=== PATIENT | female | born 1975 | race Hispanic/Latino ===

== ENCOUNTER 2021-10-12 21:56 | Emergency (ER) | payer SELFPAY ==
[2021-10-12] MEDS ORDERED: Sodium Chloride 0.9% 1,000 ML ONE (22:53)
[2021-10-12] MEDS ORDERED: Ondansetron PF 4 MG/2 ML Vial ONE (22:53)
[2021-10-12] MEDS ORDERED: methylPREDNISolone Sod Succ/PF 125 MG/2 ML VIAL ONE (23:16)
[2021-10-12 23:17] LABS: Anion Gap 14 mmol/L (10-20); BUN (Urea Nitrogen) 14 mg/dL (7.0-18.7); Calc. Creatinine Clearance 0 mL/min (70-130); Calcium 8.9 mg/dL (7.8-10.44); Carbon Dioxide 25 mmol/L (22-29); Chloride 103 mmol/L (98-107); Glucose 102 mg/dL (70-105); Potassium 3.7 mmol/L (3.5-5.1); Sodium 138 mmol/L (136-145)
== END 2021-10-13 00:11 | disposition home or self-care (01) ==
LOC: NAV ERS 21:56
DX: J02.9 Acute pharyngitis, unspecified (principal)
CPT/HCPCS: 80048; 96374; 96375; J2405; J2930; J7050

== ENCOUNTER 2021-11-10 00:48 | Emergency (ER) | payer SELFPAY ==
[2021-11-10] MEDS ORDERED: Cyclobenzaprine 10 MG TAB ONE (01:29)
[2021-11-10] MEDS ORDERED: Ketorolac Tromethamine 30 MG/ML VIAL ONE (01:29)
[2021-11-10] MEDS ORDERED: traMADol HCl 50 MG TAB ONE (01:29)
== END 2021-11-10 02:20 | disposition home or self-care (01) ==
LOC: NAV ERS 00:48
DX: M54.41 Lumbago with sciatica, right side (principal)
CPT/HCPCS: 96372; 99283; J1885

== ENCOUNTER 2021-11-15 08:40 | Emergency (ER) | payer SELFPAY ==
[2021-11-15 09:10] LABS: Bilirubin Moderate (Negative); Blood, Urine Trace (Negative); Clarity Slightly Cloudy (Clear); Glucose, Urine (Dipstick) Negative (Negative); Ketone, Urine > or equal to 80 mg/dL (Negative); Leukocyte Negative (Negative); Nitrite Negative (Negative); Protein, Urine (Dipstick) 100 mg/dL (Neg-Trace); pH, Urine 5.5 (5.0-9.0)
[2021-11-15 09:15] LABS: Bacteria/HPF 1+ HPF (None Seen); RBC/HPF 0-3 HPF (0-3); WBC/HPF 0-3 HPF (0-3)
[2021-11-15] MEDS ORDERED: Ondansetron PF 4 MG/2 ML Vial ONE (09:18)
[2021-11-15] MEDS ORDERED: Sodium Chloride 0.9% 1,000 ML ONE ×2 (09:18→10:13)
[2021-11-15 09:26] LABS: Hemoglobin 10.2 g/dL (12.0-16.0); Mean Corpuscular HGB CONC 31.2 g/dL (32.0-36.0); Mean Corpuscular Hemoglobin 23.8 pg (27.0-31.0); Mean Corpuscular Volume 76.3 fL (78.0-98.0); Mean Platelet Volume 6.3 fL (7.4-10.4); Platelet Count 214 thou/uL (130-400); Red Blood Cell (RBC) Count 4.29 mill/uL (4.20-5.40)
[2021-11-15 09:39] LABS: ALT (SGPT) 45 U/L (8-55); AST (SGOT) 31 U/L (5-34); Albumin 3.6 g/dL (3.5-5.0); Alkaline Phosphatase 230 U/L (40-110); Anion Gap 15 mmol/L (10-20); BUN (Urea Nitrogen) 11 mg/dL (7.0-18.7); Bilirubin, Total 1.1 mg/dL (0.2-1.2); Calc. Creatinine Clearance 0 mL/min (70-130); Calcium 9.2 mg/dL (7.8-10.44); Carbon Dioxide 24 mmol/L (22-29); Chloride 101 mmol/L (98-107); Globulin 4.8 g/dL (2.4-3.5); Glucose 124 mg/dL (70-105); Lipase 14 U/L (8-78); Potassium 3.7 mmol/L (3.5-5.1); Protein, Total 8.4 g/dL (6.0-8.3); Sodium 136 mmol/L (136-145)
[2021-11-15] MEDS ORDERED: Mag-Al Plus 1200 MG/1200 MG/120 MG/30 ML UDCUP ONE (09:41)
[2021-11-15 09:43] LABS: Band 8 % (5-11); Lymphocytes 66 % (21-51); MDiff Complete? YES; Manual Diff?? YES; Neutrophil 5 % (42-75); Reactive Lymphocytes 10 % (0-10)
[2021-11-15 09:44] LABS: Anisocytosis SLIGHT = 6-15 cells (100X) (0-5/hpf); Metamyelocyte 1 % (0-0); Monocytes 10 % (0-10); Platelet Morphology Comment Appears Adequate
[2021-11-15] MEDS ORDERED: Sodium Chloride 0.9% 1,000 ML BAG ONE (11:20)
== END 2021-11-15 12:35 | disposition home or self-care (01) ==
LOC: NAV ERS 08:40
DX: K29.00 Acute gastritis without bleeding (principal); R11.2 Nausea with vomiting, unspecified
CPT/HCPCS: 80053; 81003; 81015; 83690; 85025; 96374; J2405; J7050